=== PATIENT | female | born 2000 | race Caucasian/White ===

== ENCOUNTER 2022-03-16 21:39 | Emergency (ER) | payer OTHER ==
[2022-03-16] MEDS ORDERED: Sodium Chloride 0.9% 1000 ML 1,000 ML IV SCH (22:15)
[2022-03-16] MEDS ORDERED: Zofran 4 MG/2 ML VIAL IV ONE (22:19)
[2022-03-16 22:26] VITALS: O2SAT 100
[2022-03-16] MEDS ORDERED: ZOFRAN ODT 4 MG PO ONE (23:21)
[2022-03-16] MEDS ORDERED: ZOFRAN ODT 4 MG ONE (23:24)
[2022-03-16 23:32] LABS: Appearance Cloudy (Clear); Bacteria Few /HPF (None Seen); Bilirubin Negative (Negative); Blood Trace (Negative); Epithelial Cells Rare /HPF (None Seen); Glucose, Urine Negative (Negative); Hyaline Casts NONE SEEN /LPF (0-2); Ketones 15 (Negative); Leukocyte Esterase Small (Negative); Nitrite Negative (Negative); Protein,Urine Dip Negative (Negative); RBC 0-2 /HPF (0-5); Urobilinogen 0.2 mg/dL (0.2)
[2022-03-16 23:34] LABS: ADD URINE CULTURE? NO (NO)
[2022-03-16] MEDS ORDERED: Sodium Chloride 0.9% 1000 ML 1,000 ML ONE (23:48)
--- NOTE | 2022-03-17 00:07 | ERPHSYRPT ---
- History of Present Illness Time Seen by Provider: 03/16/22 22:30 Historian: patient Exam Limitations: no limitations Patient Subjective Stated Complaint: pt states she began having lower abd pain and has been vomiting for last 3 hours. states last 2 times she has vomited there has been bright red stringy blood in it Triage Nursing Assessment: pt alert and oriented, answers questions approp. pt back per wheelchair and transfers to stretcher per self. skin warm and dry. respirations nonlabored. abd soft and nontender to light palpation. bowel sounds present x4 quads. Physician History: Patient a 21-year-old female presents the emergency department with her mother for evaluation of lower abdominal and pelvic pain. Symptoms started approximately 3 hours prior to arrival. Patient has been experiencing some nausea and vomiting. Patient took Pepto-Bismol and Tums however no relief experience. No trauma. No fever. No urinary symptomology. Patient denies history of the same. Symptoms are progressive. Symptoms are moderate in intensity. Palpation reproduces symptoms. Patient has a history of unprotected sex. Patient voices no other complaints or concerns at this time. Portions of this note were created with voice recognition technology. There may be grammatical, spelling, punctuation or sound alike errors Timing/Duration: today Activities at Onset: none Quality: aching Abdominal Pain Onset Location: other (Bilateral lower abdominal pain and midline pelvic pain.) Pain Radiation: no radiation Severity of Pain-Max: moderate Severity of Pain-Current: mild Modifying Factors: Improves With: nothing Associated Symptoms: nausea, vomiting Previous symptoms: no recent treatment Allergies/Adverse Reactions: No Known Drug Allergies Allergy (Verified 03/16/22 22:22) Home Medications: Norethindrone-Ethin. Estradiol [Pirmella 1-35 28 Tablet] 1 each PO DAILY 03/16/22 [History] Hx Tetanus, Diphtheria Vaccination/Date Given: Yes Hx Influenza Vaccination/Date Given: Yes Hx Pneumococcal Vaccination/Date Given: No Immunizations Up to Date: Yes Travel Risk - International Travel Have you traveled outside of the country in past 3 weeks: No - Coronavirus Screening Are you exhibiting any of the following symptoms?: No Close contact with a COVID-19 positive Pt in past 14-21 Days: No - Vaccine Status Have you recieved a Covid-19 vaccination: Yes [place]ter In: [place] - Vaccination Dates Date of 2cond Vaccination (if applicable): 2021 - Review of Systems Constitutional: No Symptoms, No Fever, No Chills Eyes: No Symptoms Ears, Nose, & Throat: No Symptoms Respiratory: No Symptoms, No Cough, No Dyspnea Cardiac: No Symptoms, No Chest Pain, No Edema, No Syncope Abdominal/Gastrointestinal: No Symptoms, No Abdominal Pain, No Nausea, No Vomiting, No Diarrhea Genitourinary Symptoms: No Symptoms, No Dysuria Musculoskeletal: No Symptoms, No Back Pain, No Neck Pain Skin: No Symptoms, No Rash Neurological: No Symptoms, No Dizziness, No Focal Weakness, No Sensory Changes Psychological: No Symptoms Endocrine: No Symptoms Hematologic/Lymphatic: No Symptoms Immunological/Allergic: No Symptoms All Other Systems: Reviewed and Negative - Past Medical History Pertinent Past Medical History: No Psycho-Social History: Attention Deficit Disorder Other Medical History: MEDS DURING SCHOOL - Past Surgical History Past Surgical History: Yes Gastrointestinal: Appendectomy Other Surgical History: MYRINGOTOMY X 5 - Social History Smoking Status: Never smoker Exposure to second hand smoke: No Drug Use: none Patient Lives Alone: No - Female History Hx Last Menstrual Period: 3weeks Hx Now: No - Nursing Vital Signs Nursing Vital Signs: Initial Vital Signs Temperature 97.5 F 03/16/22 22:01 Pulse Rate 83 03/16/22 22:01 Respiratory Rate 18 03/16/22 22:01 Blood Pressure 113/77 03/16/22 22:01 O2 Sat by Pulse Oximetry 100 03/16/22 22:01 Pain Scale Pain Intensity 10 - Physical Exam General Appearance: no apparent distress, alert Eye Exam: PERRL/EOMI, eyes nml inspection Ears, Nose, Throat Exam: normal ENT inspection, pharynx normal, moist mucous membranes Neck Exam: normal inspection, non-tender, supple, full range of motion Respiratory Exam: normal breath sounds, lungs clear, No respiratory distress Cardiovascular Exam: regular rate/rhythm, normal heart sounds Gastrointestinal/Abdomen Exam: soft, other (Tenderness to palpation bilateral lower quadrants and midline pelvis. Overlying soft tissue intact. No signs of trauma), No tenderness, No mass Pelvic Exam: normal external exam, other (Nonremarkable bimanual exam. No CMT. Scant white vaginal discharge. No foul odor. No open or draining lesions.), No adnexal tenderness, No adnexal mass, No cervical motion tenderness, No uterine tenderness, No vaginal discharge Back Exam: normal inspection, normal range of motion, No CVA tenderness, No vertebral tenderness Extremity Exam: normal inspection, normal range of motion, pelvis stable Neurologic Exam: alert, oriented x 3, cooperative, normal mood/affect, nml cerebellar function, sensation nml, No motor deficits Skin Exam: normal color, warm, dry Lymphatic Exam: No adenopathy SpO2 Interpretation: normal SpO2: 100 O2 Delivery: Room Air - Course Nursing assessment & vital signs reviewed: Yes - CT Exams Abdomen/Pelvis CT Interpretation: Tele-radiologist Report (Fluid in the small bowel and ascending colon suggestive of an enterocolitis. Constipation) Ordered Tests: Active Orders 24 hr Category Date Time Status IV Insertion STAT Care 03/16/22 22:15 Active ABDOMEN AND PELVIS W/0 CONTRAS [CT] Stat Exams 03/17/22 00:51 Taken CBC W DIFF Stat Lab 03/16/22 22:15 Completed CMP Stat Lab 03/16/22 22:15 Ordered HCG,QUALITATIVE URINE Stat Lab 03/16/22 22:38 Completed LIPASE Stat Lab 03/16/22 22:15 Ordered TROPONIN Q4H Lab 03/17/22 02:30 Ordered TROPONIN Q4H Lab 03/17/22 06:30 Ordered TROPONIN Stat Lab 03/16/22 22:15 Ordered UA W/RFX UR CULTURE Stat Lab 03/16/22 22:38 Completed Medication Summary Generic Name Dose Route Start Last Admin Trade Name Freq PRN Reason Stop Dose Admin Sodium Chloride 1,000 mls @ 100 mls/hr 03/16/22 22:15 03/17/22 01:15 Sodium Chloride 0.9% 1000 Ml IV 04/15/22 22:14 Infused .Q10H MARISOL Infusion Ceftriaxone Sodium/Dextrose 1 g in 50 mls @ 100 mls/hr 03/17/22 02:18 Rocephin 1 Gm-D5w 50 Ml Bag IV 03/17/22 02:47 STAT STA Discontinued Medications Generic Name Dose Route Start Last Admin Trade Name Freq PRN Reason Stop Dose Admin Sodium Chloride 1,000 mls @ 999 mls/hr 03/17/22 01:15 03/17/22 01:19 Sodium Chloride 0.9% 1000 Ml IV 03/17/22 02:15 999 mls/hr .Q1H1M STA Administration Ondansetron HCl 4 mg 03/16/22 22:19 02/07/23 01:55 Ondansetron Hcl 4 Mg/2 Ml Vial IV 03/16/22 22:20 Not Given STAT ONE Ondansetron HCl 4 mg 03/16/22 23:21 03/16/22 23:26 Zofran 4 Mg/Udtablet Orally Disintegrating PO 03/16/22 23:22 4 mg STAT ONE Administration Ondansetron HCl Confirm 03/16/22 23:24 Zofran 4 Mg/Udtablet Orally Disintegrating Administered 03/16/22 23:25 Dose 4 mg .ROUTE .Dime-MED ONE Lab/Rad Data: Laboratory Result Diagrams 03/17/22 01:55 Laboratory Results 03/17/22 03/16/22 03/16/22 Range/Units 01:55 22:38 22:38 WBC 9.9 (4.0-10.5) x10^3/uL RBC 4.39 (4.1-5.4) x10^6/uL Hgb 13.2 (12.0-16.0) g/dL Hct 43.2 (35-47) % MCV 98.4 (78-100) fL MCH 30.1 (26-32) pg MCHC 30.6 L (32-36) g/dL RDW 13.2 (11.5-14.0) % Plt Count 159 (150-450) x10^3/uL MPV 9.8 (7.5-11.0) fL Gran % 89.6 H (36.0-66.0) % Immature Gran % (Auto) 0.4 (0.00-0.4) % Nucleat RBC Rel Count 0.0 (0.00-0.1) % Eos # (Auto) 0.03 (0-0.5) x10^3/uL Immature Gran # (Auto) 0.04 H (0.00-0.03) x10^3u/L Absolute Lymphs (auto) 0.50 L (1.0-4.6) x10^3/uL Absolute Monos (auto) 0.43 (0.0-1.3) x10^3/uL Absolute Nucleated RBC 0.00 (0.00-0.01) x10^3u/L Lymphocytes % 5.1 L (24.0-44.0) % Monocytes % 4.4 (0.0-12.0) % Eosinophils % 0.3 (0.00-5.0) % Basophils % 0.2 (0.0-0.4) % Absolute Granulocytes 8.84 H (1.4-6.9) x10^3/uL Basophils # 0.02 (0-0.4) x10^3/uL Urine Color Yellow (Yellow) Urine Appearance Cloudy A (Clear) Urine pH 5.0 (4.6-8.0) Ur Specific [place] 1.020 (1.005-1.030) Urine Protein Negative (Negative) Urine Glucose (UA) Negative (Negative) mg/dL Urine Ketones 15 A (Negative) Urine Blood Trace (Negative) Urine Nitrite Negative (Negative) Urine Bilirubin Negative (Negative) Urine Urobilinogen 0.2 (0.2) mg/dL Ur Leukocyte Esterase Small A (Negative) U Hyaline Cast (Auto) NONE SEEN (0-2) /LPF Urine Microscopic RBC 0-2 (0-5) /HPF Urine Microscopic WBC 6-10 A (0-5) /HPF Ur Epithelial Cells Rare (None Seen) /HPF Urine Bacteria Few A (None Seen) /HPF Urine Culture Reflexed NO (NO) Urine HCG, Qual NEGATIVE (Negative) - Progress Progress: improved Progress Note: Patient 21-year-old female presents emergency department for evaluation of lower abdominal pain. Physical exam significant for lower abdominal pain and pelvic pain. Patient's presenting symptom was acute. Complexity is moderate. No significant comorbidities to contribute to patient's presentation. Testing ordered includes CT abdomen pelvis, CBC, CMP, wet prep, GC chlamydia, hCG urine, lipase, troponin, CT scan reveals constipation, enterocolitis. Urinalysis significant for urinary tract infection with a slight pyuria. Wet prep, GC chlamydia results pending. Patient received a dose of Rocephin IV for her urinary tract infection. Patient also received normal saline IV x2 L. Zofran administered for nausea. A prescription for Augmentin which cover enterocolitis and urinalysis was forwarded to patient's pharmacy. Results of specialized testing was used for medical decision making. Mother at bedside. They agree to follow-up with primary care doctor within 48 hours for evaluation. Level of EM service provided was moderate. Complexity of problem addressed was moderate. Complexity of data reviewed and analyzed was moderate. Risk of complication and or risk of morbidity/mortality of patient management was moderate. No critical care time. Patient served as an independent historian. Patient reassessed. She states she feels much better. Pain significantly improved. Vital stable. Time spent during discharge is approximately 10 to 15 minutes. GC chlamydia/wet prep pending. We will discharge patient home. GOVIND Vick states she will notify patient of any positive findings. Discharge diagnoses abdominal pain, enterocolitis, constipation, urinary tract infection. Patient understands the importance of bowel rest. Patient will avoid heavy foods greasy foods. Clear liquids for the next 3 days. Portions of this note were created with voice recognition technology. There may be grammatical, spelling, punctuation or sound alike errors 03/17/22 02:34 Counseled pt/family regarding: lab results, diagnosis, need for follow-up, rad results - Departure Departure Disposition: Home Clinical Impression: UTI (urinary tract infection), Enterocolitis, Constipation Condition: Stable Critical Care Time: No Referrals: ALVERTO TAPIA NP [Primary Care Provider] - Follow up/PCP as directed Additional Instructions: Discharge/Care Plan BEATRIZ DANIELSON was seen on 03/17/22 in the Emergency Room. The patient was counseled regarding Diagnosis,Lab results, Imaging studies, need for follow up and when to return to the Emergency Room. Prescriptions given: Discharge Note I have spoken with the patient and/or caregivers. I have explained the patient's condition, diagnosis and treatment plan based on the information available to me at this time. I have answered the patient's and/or caregiver's questions and addressed any concerns. The patient and/or caregivers have as good understanding of the patient's diagnosis, condition and treatment plan as can be expected at this point. The vital signs have been stable. The patient's condition is stable and appropriate for discharge from the emergency department. The patient will pursue further outpatient evaluation with the primary care physician or other designated or consulting physician as outlined in the discharge instructions. The patient and/or caregivers are agreeable to this plan of care and follow-up instructions have been explained in detail. The patient and/or caregivers have received these instruction. The patient/and or caregivers are aware that any significant change in condition or worsening of symptoms should prompt an immediate return to this or the closest emergency department or call 911. Prescriptions: Amox Tr/Potass Clav. 875 mg [Augmentin 875-125 Tablet] 875 mg PO BID 5 Days #10 tablet
[2022-03-17] MEDS ORDERED: Sodium Chloride 0.9% 1000 ML 1,000 ML IV STA (01:15)
[2022-03-17] MEDS ORDERED: Sodium Chloride 0.9% 1000 ML 1,000 ML ONE (01:16)
[2022-03-17 01:59] LABS: Absolute Neutrophil Ct (ANC) 8.84 x10^3/uL (1.4-6.9); BASOPHIL % 0.2 % (0.0-0.4); Basophil (Absolute #) 0.02 x10^3/uL (0-0.4); Eosinophil % 0.3 % (0.00-5.0); Eosinophil (Absolute #) 0.03 x10^3/uL (0-0.5); Hematocrit 43.2 % (35-47); Hemoglobin 13.2 g/dL (12.0-16.0); IMMATURE GRAN # 0.04 x10^3u/L (0.00-0.03); IMMATURE GRAN % 0.4 % (0.00-0.4); Lymphocytes % 5.1 % (24.0-44.0); Mean Cell Volume 98.4 fL (78-100); Mean Corpuscular Hemoglobin 30.1 pg (26-32); Mean Corpuscular Hgb Concent. 30.6 g/dL (32-36); Mean Platelet Volume 9.8 fL (7.5-11.0); Monocyte (Absolute #) 0.43 x10^3/uL (0.0-1.3); Monocytes % 4.4 % (0.0-12.0); Neutrophil % 89.6 % (36.0-66.0); Platelet Count 159 x10^3/uL (150-450); Red Blood Count 4.39 x10^6/uL (4.1-5.4); Red Cell Distribution Width 13.2 % (11.5-14.0); White Blood Count 9.9 x10^3/uL (4.0-10.5)
[2022-03-17] MEDS ORDERED: ROCEPHIN 1 Gm-D5w 50 ml Bag** 1 G/50 ML IVPB IV STA (02:18)
[2022-03-17 02:21] LABS: ALBUMIN 3.4 g/dL (3.5-5.0); ALKALINE PHOSPHATASE 55 U/L (38-126); ANION GAP 11.7 MEQ/L (5-15); BLOOD UREA NITROGEN 13 mg/dL (7-17); CHLORIDE 110 mmol/L (98-107); Carbon Dioxide 19 mmol/L (22-30); Creatinine 1 0.65 mg/dL (0.52-1.04); EST GLOMERULAR FILTRATION RATE > 60.0 ML/MIN; Glucose 95 mg/dL (74-106); LIPASE 83 U/L (23-300); Potassium 3.9 mmol/L (3.5-5.1); SGOT/AST 21 U/L (14-36); SGPT/ALT 16 U/L (0-35); SODIUM 137 mmol/L (137-145); TROPONIN < 0.012 ng/mL (0.000-0.034); Total Protein 6.5 g/dL (6.3-8.2)
[2022-03-17 02:22] LABS: Bacteria Few; Clue Cells Rare; Red Blood Cells Rare; Trichomonas None Seen; White Blood Cells Few; Yeast None Seen
[2022-03-17] MEDS ORDERED: ROCEPHIN 1 Gm-D5w 50 ml Bag** 1 G/50 ML IVPB IV ONE (02:23)
[2022-03-17 04:26] LABS: CHLAMYDIA DNA NOT DETECTED (NEGATIVE); GC DNA Probe NOT DETECTED (NEGATIVE)
[2022-03-17 04:32] VITALS: BP 104/58; PULSE 72
[2022-03-17 05:30] LABS: Slide Review 1 YES
--- NOTE | 2022-03-17 08:39 | XRAY ---
Indication: Nausea, left lower quadrant pain, and vomiting blood. Multiple contiguous axial images obtained through the abdomen and pelvis without contrast. Comparison: None Lung bases are clear. Heart is not enlarged. Noncontrasted stomach and bowel loops appear nonobstructed. Mild uniformly fluid distended small bowel loops with occasional fluid leveling, ileus versus enteritis. Previous appendectomy. Left hemicolon and sigmoid demonstrates mild fecal debris throughout. No free fluid/air. Remaining liver, gallbladder, pancreas, spleen, adrenal glands, kidneys, ureters, bladder, uterus, and aorta are unremarkable for noncontrast exam. Osseous structures intact. No ventral or inguinal hernias. Impression: 1. Mild fluid distended small bowel loops with fluid leveling, ileus versus enteritis. 2. Remaining CT abdomen/pelvis without contrast exam is negative. Comment: Preliminary interpretation made by [facility]. No critical discrepancy.
== END 2022-03-17 03:38 | disposition home or self-care (01) ==
LOC: ED 21:39
DX: N39.0 Urinary tract infection, site not specified (principal); K52.9 Noninfective gastroenteritis and colitis, unspecified; K59.00 Constipation, unspecified; R10.2 Pelvic and perineal pain; R10.30 Lower abdominal pain, unspecified; R11.2 Nausea with vomiting, unspecified
CPT/HCPCS: 36000; 36415; 74176; 80053; 81001; 81025; 83690; 84484; 85025; 87210; 87491; 87591; 96360; 96365; 99284; J0696; Q0162